=== PATIENT | female | born 1970 | race Caucasian/White ===

== ENCOUNTER 2017-11-12 08:50 | Day surgery (SDC) | payer OTHER ==
[~2017-11-12 08:50] MED LIST: Metoclopramide 10 MG/2 ML SDV IV PRN; Sodium Chloride 0.9% 1,000 ML IV SCH; Sodium Chloride 0.9% 10 ML Syringe FLUSH PRN
[2017-11-12] MEDS ORDERED: Propofol 500 MG/50 ML SDV ONE (10:30)
--- NOTE | 2017-11-12 19:14 | OR ---
DATE OF OPERATION: 11/12/2017 PREOPERATIVE DIAGNOSIS: Right upper quadrant pain. POSTOPERATIVE DIAGNOSIS: Right upper quadrant pain. PROCEDURE: Colonoscopy with biopsy. ANESTHESIA: MAC. ESTIMATED BLOOD LOSS: Minimal. COMPLICATIONS: None. INDICATION FOR THE PROCEDURE: The patient is a 47-year-old female with a history of right upper quadrant pain. She last had a colonoscopy 18 years ago. Has not had any change in bowel habits since then. Grandmother did have colon cancer at age greater than 90, otherwise, no other family history. The patient is here today for colonoscopy. DESCRIPTION OF THE PROCEDURE: Informed consent was obtained from the patient. The patient was taken to the operating room and placed on the table in the left lateral decubitus position. Digital rectal exam was normal. Colonoscope was advanced through the anus and directed towards the cecum. The cecum was identified by the appendiceal orifice and the ileocecal valve. The ileocecal valve was intubated and terminal ileum also appeared to be normal. The colonoscope was then withdrawn. Several random biopsies were taken in the hepatic flexure area given her history of pain to this location, otherwise, colonoscope was withdrawn and no other abnormalities were identified. No masses. No polyps. No areas of ischemia or inflammation were identified. Retroflexion was performed in the rectum which was also unremarkable. Colonoscope was then withdrawn. FINDINGS: Normal terminal ileum and normal colonoscopy. RECOMMENDATIONS: We will follow up on random biopsies, otherwise, we would recommend repeat screening colonoscopy in 10 years. [place] /[id number]
== END 2017-11-12 12:20 | disposition home or self-care (01) ==
LOC: LB.SDS 08:50
PROVIDERS: ATTEND Surgery
DX: R10.11 Right upper quadrant pain (principal); K58.9 Irritable bowel syndrome, unspecified; J02.0 Streptococcal pharyngitis; Z79.2 Long term (current) use of antibiotics; Z80.0 Family history of malignant neoplasm of digestive organs
CPT/HCPCS: 88305; 96374; J2704; J7030; J7050